=== PATIENT | male | born 1990 | race African-American/Black ===

== ENCOUNTER 2022-02-10 01:01 | Emergency (ER) | payer OTHER ==
[~2022-02-10] VITALS: Ht 154.9 cm; Wt 68.0 kg
[2022-02-10 01:46] LABS: PLATELET COUNT 204 K/uL (142-355)
[2022-02-10 01:56] LABS: POTASSIUM 3.5 mmol/L (3.6-5.2)
[2022-02-10 02:15] LABS: PARTIAL THROMBOPLASTIN TIME 26.6 SECONDS (24.5-33.6)
[2022-02-10 03:50] VITALS: BP 125/84; TEMP 97.9
== END 2022-02-10 03:50 | disposition home or self-care (01) ==
LOC: ED 01:01
PROVIDERS: Family Medicine
DX: R51.9 Headache, unspecified (principal); J32.9 Chronic sinusitis, unspecified; F17.290 Nicotine dependence, other tobacco product, uncomplicated
CPT/HCPCS: 36415; 80053; 82550; 84484; 85027; 85610; 85730; 93005; 96374; 99284; J1885